=== PATIENT | male | born 1980 | race African-American/Black ===

== ENCOUNTER 2020-12-12 06:29 | Day surgery (SDC) | payer OTHER ==
[~2020-12-12] VITALS: Ht 185.4 cm; Wt 117.9 kg
[2020-12-12 09:58] VITALS: BP 145/96
== END 2020-12-12 10:10 | DRG 352 ==
LOC: ORM 06:29
PROVIDERS: ATTEND Surgery
PROC: 0YU54JZ Supplement Right Inguinal Region with Synthetic Substitute, Percutaneous Endoscopic Approach (ICD-10-PCS; principal; 2020-12-12)
DX: K40.30 Unilateral inguinal hernia, with obstruction, without gangrene, not specified as recurrent (principal)
CPT/HCPCS: C1781; J0131; J2710